=== PATIENT | male | born 1960 | race Caucasian/White ===

== ENCOUNTER 2018-08-21 11:50 | Day surgery (SDC) | payer MEDICARE ==
[2018-08-20 13:15] VITALS: BMI 34.7
[~2018-08-21 11:50] MED LIST: Glycopyrrolate 0.2 MG/ML 5 ML SYRINGE ONE; Ondansetron PF 4 MG/2 ML Vial ONE; PROPOFOL 200 MG/20 ML VIAL ONE
[2018-08-21 13:41] LABS: Calc. Creatinine Clearance 142 mL/min (70-130); Estimated GFR-MDRD Greater than 90
[2018-08-21] MEDS ORDERED: Fentanyl 100 MCG/2 ML VIAL ONE ×2 (14:58→15:22)
--- NOTE | 2018-08-21 15:50 | MRI ---
NONCONTRAST ENHANCED MRI IMAGES CERVICAL SPINE: 08/21/18 HISTORY: Chronic neck pain, radiculopathy. Multiplanar and multisequence noncontrast enhanced MRI cervical spine obtained. Images demonstrate ACDF with anterior fusion of the C3, C4, C5 and C6 vertebral levels. The spinal co rd is unremarkable with no evidence of masses or lesions. C2-3: Minimal right C2-3 neural foraminal narrowing seen due to osteophyte encroachment. C3-4: Unremarkable. C4-5: Unremarkable. C5-6: No significant evidence of central or neural foraminal narrowing seen. C6-7: Mild right C6-7 neural foraminal narrowing is seen due to osteophyte encroachment. The left kyra ral foramen is patent. C7-T1: Unremarkable. IMPRESSION: ACDF and extensive cervical fusion involving C3, C4, C5, and C6 levels. POS: [facility]IG
== END 2018-08-21 16:35 | disposition home or self-care (01) ==
LOC: SDC/OP 11:50
PROVIDERS: ATTEND Pain Medicine Pain Medicine
DX: M54.12 Radiculopathy, cervical region (principal); M48.02 Spinal stenosis, cervical region
CPT/HCPCS: 36415; 72141; 82565; J2405; J2704; J3010